=== PATIENT | female | born 1980 | race Caucasian/White ===

== ENCOUNTER 2021-10-06 11:09 | Emergency (ER) | payer BC, OTHER ==
[2021-10-06 11:25] VITALS: BP 119/85; PULSE 109
[2021-10-06] MEDS ORDERED: Sodium Chloride 0.9% 1,000 ML IV STA (12:20)
[2021-10-06] MEDS ORDERED: Sodium Chloride 0.9% 10 ML Syringe FLUSH PRN (12:20)
[2021-10-06] MEDS ORDERED: Ketorolac 30 MG/ML SDV IVPUSH ONE (12:28)
[2021-10-06] MEDS ORDERED: Ondansetron 4 MG/2 ML SDV IVPUSH ONE ×2 (12:28→13:19)
--- NOTE | 2021-10-06 12:52 | CT ---
Head CT Technique: Multiple axial sections through the brain were obtained. Intravenous contrast was not utilized. Reconstructed coronal and sagittal images were obtained. Comparison: No prior intracranial imaging is available. Findings: Ventricles along with basal cisterns and sulci over the convexities are within normal limits. No abnormal parenchymal densities are seen. No evidence of intracranial hemorrhage is seen. No midline shift or mass-effect is seen. Bone window settings were reviewed. No acute calvarial abnormality is seen. Visualized paranasal sinuses and mastoid sinuses show nothing acute. Impression: 1. Nothing acute is seen on noncontrast head CT exam. Diagnostic code #1
--- NOTE | 2021-10-06 13:06 | EDM.PDOC ---
ED HPI GENERAL MEDICAL PROBLEM - General Chief Complaint: General Stated Complaint: EAR PAIN\HANDS STIFF AND TINGLE Time Seen by Provider: 10/06/21 12:17 Source of Information: Reports: Patient, RN Notes Reviewed History Limitations: Reports: No Limitations - History of Present Illness INITIAL COMMENTS - FREE TEXT/NARRATIVE: Patient is a 40-year-old female presenting to the emergency department with complaints of sinus congestion, ear pressure, nausea, pain and cramping to her bilateral lower arms and hands. Patient reports that she had her Covid and flu vaccination last Tuesday. Tuesday she began feeling nauseous and developed sinus congestion and pressure in her ears. She has not been eating or drinking well since that time. This morning, she woke up with cramping to her hands and lower arms. States it feels like her arms are asleep. When the nurse checked her blood pressure on her left arm, she states that her hand went into a full cramp. She also closed her left hand in a car door a few days ago which resulted in some swelling and bruising to this area. She is able to move the hand however. She denies any chest pain or shortness of breath. She has not been vomiting but states that she is quite nauseous. Denies any diarrhea. She is had no fever that she is aware of. Denies any recent injuries or pain to her neck. Bilateral Hand Pain Score (Numeric/FACES): 10 - Related Data Allergies Allergy/AdvReac Type Severity Reaction Status Date / Time prochlorperazine AdvReac Severe Nausea Verified 10/06/21 11:25 [From Compazine] Home Meds: Home Meds Escitalopram [Lexapro] 10 mg PO DAILY 10/06/21 [History] LORazepam [Ativan] 0.5 mg PO BID 10/06/21 [History] Ondansetron [Zofran ODT] 4 mg PO Q6H PRN #10 tab.dis 10/06/21 [Rx] Potassium Chloride 20 meq PO BID 3 Days #6 tablet.er 10/06/21 [Rx] Zolpidem [Ambien] 10 mg PO BEDTIME 10/06/21 [History] busPIRone HCl [busPIRone] 30 mg PO DAILY 10/06/21 [History] Past Medical History - Past Health History Medical/Surgical History: Denies Medical/Surgical History 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 ED EXAM, GENERAL - Physical Exam Exam: See Below Exam Limited By: No Limitations General Appearance: Alert, WD/WN, No Apparent Distress Ears: Normal External Exam, Normal Canal, Hearing Grossly Normal, Normal TMs Head: Atraumatic, Normocephalic Neck: Normal Inspection, Supple, Non-Tender, Full Range of Motion, Other (Positive bilateral Spurling maneuver.) Respiratory/Chest: No Respiratory Distress, Lungs Clear, Normal Breath Sounds, No Accessory Muscle Use, Chest Non-Tender Cardiovascular: Normal Peripheral Pulses, Regular Rate, Rhythm, No Edema, No Gallop, No JVD, No Murmur, No Rub Extremities: Other (Faint ecchymosis to left hand. No deformity. Full range of motion.) Neurological: Alert, Oriented, Normal Cognition, Normal Gait, No Motor/Sensory Deficits Psychiatric: Normal Affect, Normal Mood Skin Exam: Warm, Dry, Intact, Normal Color, No Rash Course - Vital Signs Last Recorded V/S: Last Vital Signs Temp 97 F 10/06/21 11:22 Pulse 109 H 10/06/21 11:22 Resp 16 10/06/21 11:22 BP 119/85 10/06/21 11:22 Pulse Ox 99 10/06/21 11:22 - Orders/Labs/Meds Orders: Active Orders 24 hr Category Date Time Status Peripheral IV Insertion Adult [OM.PC] Stat Oth 10/06/21 12:20 Ordered Labs: Laboratory Tests 10/06/21 10/06/21 10/06/21 Range/Units 12:50 12:50 13:05 WBC 8.84 (3.98-10.04) K/mm3 RBC 5.00 (3.98-5.22) M/mm3 Hgb 15.6 (11.2-15.7) gm/dl Hct 45.7 H (34.1-44.9) % MCV 91.4 (79.4-94.8) fl MCH 31.2 (25.6-32.2) pg MCHC 34.1 (32.2-35.5) g/dl RDW Std Deviation 49.1 H (36.4-46.3) fL Plt Count 592 H (182-369) K/mm3 MPV 8.9 L (9.4-12.3) fl Neut % (Auto) 68.3 (34.0-71.1) % Lymph % (Auto) 24.9 (19.3-51.7) % Hickman % (Auto) 5.3 (4.7-12.5) % Eos % (Auto) 0.7 (0.7-5.8) Baso % (Auto) 0.7 (0.1-1.2) % Neut # (Auto) 6.04 (1.56-6.13) K/mm3 Lymph # (Auto) 2.20 (1.18-3.74) K/mm3 Hickman # (Auto) 0.47 H (0.24-0.36) K/mm3 Eos # (Auto) 0.06 (0.04-0.36) K/mm3 Baso # (Auto) 0.06 (0.01-0.08) K/mm3 Manual Slide Review Abnormal smear Sodium 145 (136-145) mEq/L Potassium 3.0 L (3.5-5.1) mEq/L Chloride 100 (98-107) mEq/L Carbon Dioxide 29 (21-32) mEq/L Anion Gap 19.0 H (5-15) BUN 4 L (7-18) mg/dL Creatinine 0.9 (0.55-1.02) mg/dL Est Cr Clr Drug Dosing 63.33 mL/min Estimated GFR (MDRD) > 60 (>60) mL/min BUN/Creatinine Ratio 4.4 L (14-18) Glucose 99 (70-99) mg/dL Calcium 8.8 (8.5-10.1) mg/dL Magnesium 1.8 (1.8-2.4) mg/dL Total Bilirubin 0.5 (0.2-1.0) mg/dL AST 23 (15-37) U/L ALT 28 (14-59) U/L Alkaline Phosphatase 89 (46-116) U/L C-Reactive Protein 3.2 H* (<1.0) mg/dL Total Protein 8.4 H (6.4-8.2) g/dl Albumin 4.1 (3.4-5.0) g/dl Globulin 4.3 gm/dL Albumin/Globulin Ratio 1.0 (1-2) Urine Color Yellow (Yellow) Urine Appearance Clear (Clear) Urine pH 5.5 (5.0-8.0) Ur Specific Thorndike > or = 1.030 (1.005-1.030) Urine Protein 2+ H (Negative) Urine Glucose (UA) Negative (Negative) Urine Ketones Trace H (Negative) Urine Occult Blood 3+ H (Negative) Urine Nitrite Negative (Negative) Urine Bilirubin 1+ H (Negative) Urine Urobilinogen 0.2 (0.2-1.0) Ur Leukocyte Esterase Negative (Negative) U Hyaline Cast (Auto) 5-10 H (0-5) /lpf Urine RBC 30-40 H (0-5) /hpf Urine WBC 0-5 (0-5) /hpf Ur Squamous Epith Cells 0-5 (0-5) /hpf Urine Bacteria Few (FEW) /hpf Urine Mucus Moderate H (FEW) /hpf Influenza Type A RNA (NEGATIVE) Influenza Type B RNA (NEGATIVE) SARS-CoV-2 RNA (RONALD) (NEGATIVE) 10/06/21 Range/Units 13:05 WBC (3.98-10.04) K/mm3 RBC (3.98-5.22) M/mm3 Hgb (11.2-15.7) gm/dl Hct (34.1-44.9) % MCV (79.4-94.8) fl MCH (25.6-32.2) pg MCHC (32.2-35.5) g/dl RDW Std Deviation (36.4-46.3) fL Plt Count (182-369) K/mm3 MPV (9.4-12.3) fl Neut % (Auto) (34.0-71.1) % Lymph % (Auto) (19.3-51.7) % Hickman % (Auto) (4.7-12.5) % Eos % (Auto) (0.7-5.8) Baso % (Auto) (0.1-1.2) % Neut # (Auto) (1.56-6.13) K/mm3 Lymph # (Auto) (1.18-3.74) K/mm3 Hickman # (Auto) (0.24-0.36) K/mm3 Eos # (Auto) (0.04-0.36) K/mm3 Baso # (Auto) (0.01-0.08) K/mm3 Manual Slide Review Sodium (136-145) mEq/L Potassium (3.5-5.1) mEq/L Chloride (98-107) mEq/L Carbon Dioxide (21-32) mEq/L Anion Gap (5-15) BUN (7-18) mg/dL Creatinine (0.55-1.02) mg/dL Est Cr Clr Drug Dosing mL/min Estimated GFR (MDRD) (>60) mL/min BUN/Creatinine Ratio (14-18) Glucose (70-99) mg/dL Calcium (8.5-10.1) mg/dL Magnesium (1.8-2.4) mg/dL Total Bilirubin (0.2-1.0) mg/dL AST (15-37) U/L ALT (14-59) U/L Alkaline Phosphatase (46-116) U/L C-Reactive Protein (<1.0) mg/dL Total Protein (6.4-8.2) g/dl Albumin (3.4-5.0) g/dl Globulin gm/dL Albumin/Globulin Ratio (1-2) Urine Color (Yellow) Urine Appearance (Clear) Urine pH (5.0-8.0) Ur Specific Thorndike (1.005-1.030) Urine Protein (Negative) Urine Glucose (UA) (Negative) Urine Ketones (Negative) Urine Occult Blood (Negative) Urine Nitrite (Negative) Urine Bilirubin (Negative) Urine Urobilinogen (0.2-1.0) Ur Leukocyte Esterase (Negative) U Hyaline Cast (Auto) (0-5) /lpf Urine RBC (0-5) /hpf Urine WBC (0-5) /hpf Ur Squamous Epith Cells (0-5) /hpf Urine Bacteria (FEW) /hpf Urine Mucus (FEW) /hpf Influenza Type A RNA Negative (NEGATIVE) Influenza Type B RNA Negative (NEGATIVE) SARS-CoV-2 RNA (RONALD) Negative (NEGATIVE) Meds: Medications Discontinued Medications Generic Name Dose Route Start Last Admin Trade Name Freq PRN Reason Stop Dose Admin Hydromorphone HCl 0.5 mg 10/06/21 13:19 10/06/21 13:32 Hydromorphone 0.5 Mg/0.5 Ml Syringe IVPUSH 10/06/21 13:20 0.5 mg ONETIME ONE Administration Sodium Chloride 1,000 mls @ 150 mls/hr 10/06/21 12:20 10/06/21 12:53 Normal Saline IV 10/06/21 18:59 150 mls/hr NOW STA Administration Ketorolac Tromethamine 30 mg 10/06/21 12:28 10/06/21 12:53 Ketorolac 30 Mg/Ml Sdv IVPUSH 10/06/21 12:29 30 mg ONETIME ONE Administration Ondansetron HCl 4 mg 10/06/21 12:28 10/06/21 12:53 Ondansetron 4 Mg/2 Ml Sdv IVPUSH 10/06/21 12:29 4 mg ONETIME ONE Administration Ondansetron HCl 4 mg 10/06/21 13:19 10/06/21 13:31 Ondansetron 4 Mg/2 Ml Sdv IVPUSH 10/06/21 13:20 4 mg ONETIME ONE Administration Potassium Chloride 40 meq 10/06/21 14:06 10/06/21 14:24 Potassium Chloride 20 Meq Tab.Er PO 10/06/21 14:07 40 meq ONETIME ONE Administration Sodium Chloride 10 ml 10/06/21 12:20 10/06/21 12:53 Sodium Chloride 0.9% 10 Ml Syringe FLUSH 10 ml ASDIRECTED PRN Administration Keep Vein Open - Re-Assessments/Exams Free Text/Narrative Re-Assessment/Exam: Patient is a 40-year-old female presenting to the emergency department with complaints of tingling, pain and cramping in her bilateral hands and lower forearms ear pressure, nasal congestion, nausea. On exam, she does have a faint faint bruising to her left hand related to injuring it in a car door number days ago. She has full range of motion. There is no obvious deformity. Exam is otherwise unremarkable. I have ordered blood work, urinalysis, Covid and influenza testing, and head CT. 10/06/21 14:25 Hematology is significant for potassium low at 3.0. Otherwise unremarkable. Urinalysis negative for infection, influenza and Covid are negative. Head CT shows no acute abnormalities. Patient will be treated with 40 mEq of potassium and have prescription sent for this. I will also send prescription for Zofran and potassium patient should follow-up with her primary care provider at the next available visit to have her blood work rechecked and ensure symptoms have resolved. She is in agreement with this plan. Discharge instructions as documented. Departure - Departure Time of Disposition: 14:37 Disposition: Home, Self-Care 01 Condition: Good Clinical Impression: Hypokalemia, Nausea - Discharge Information *PRESCRIPTION DRUG MONITORING PROGRAM REVIEWED*: No *COPY OF PRESCRIPTION DRUG MONITORING REPORT IN PATIENT HAY: No Prescriptions: Potassium Chloride 20 meq PO BID 3 Days #6 tablet.er Ondansetron [Zofran ODT] 4 mg PO Q6H PRN #10 tab.dis PRN Reason: Nausea/Vomiting Instructions: Nausea, Adult, Hypokalemia Referrals: PCP,None [Primary Care Provider] - Forms: ED Department Discharge Additional Instructions: Increase oral fluid intake. Take the potassium as prescribed. Use Zofran as needed for nausea. Follow-up with your primary care provider at next available visit to ensure symptoms are resolving and have your potassium levels rechecked. Return to ER for new or worsening symptoms of concern. Sepsis Event Note (ED) - Evaluation Sepsis Screening Result: No Definite Risk - Focused Exam Vital Signs: Vital Signs Temp Pulse Resp BP Pulse Ox 10/06/21 11:22 97 F 109 H 16 119/85 99 - My Orders Last 24 Hours: My Active Orders 10/06/21 12:20 Peripheral IV Insertion Adult [OM.PC] Stat - Assessment/Plan Last 24 Hours: My Active Orders 10/06/21 12:20 Peripheral IV Insertion Adult [OM.PC] Stat
[2021-10-06] MEDS ORDERED: HYDROmorphone 0.5 MG/0.5 ML Syringe IVPUSH ONE (13:19)
[2021-10-06] MEDS ORDERED: Potassium Chloride 20 MEQ Tab.ER PO ONE (14:06)
[2021-10-06 14:13] LABS: CORONAVIRUS COVID-19 NAA NEGATIVE (NEGATIVE)
== END 2021-10-06 14:45 | disposition home or self-care (01) ==
LOC: JD.ED 11:09
DX: E87.6 Hypokalemia (principal); R11.0 Nausea; M79.81 Nontraumatic hematoma of soft tissue; Z88.8 Allergy status to other drugs, medicaments and biological substances; Z20.822 Contact with and (suspected) exposure to COVID-19
CPT/HCPCS: 0240U; 36415; 70450; 80053; 81001; 83735; 85025; 86140; 96374; 96375; 96376; 99284; A9270; J1170; J1885; J2405; J7030; 99285